=== PATIENT | female | born 1990 | race Caucasian/White ===

== ENCOUNTER → 2016-09-30 17:36 | Observation (INO) ==
[2016-09-30 14:49] LABS: Bilirubin,Urine Small (Negative); Blood,Urine Negative (Negative); Clarity,Urine Turbid (Clear); Color,Urine Dark Yellow (Yellow); Glucose,Urine (UA) Normal (Normal); Ketones,Urine 15 mg/dL (Negative); Leukocyte Esterase,Urine Moderate (Negative); Nitrite,Urine Negative (Negative); Protein,Urine 100 mg/dL (Neg-Trace); Specific Gravity,Urine > 1.030 (1.010-1.025); Urobilinogen,Urine Normal (Normal)
[2016-09-30 14:51] LABS: Bacteria,Urine Moderate per hpf (None-Few); Squamous Epithelial Cell,Urine Many per lpf (None-Few); WBC,Urine TNTC per hpf (0-3)
--- NOTE | 2016-09-30 15:33 | OB/GYN Progress Note ---
Date of Encounter: 09/30/16 Time of Encounter: 15:13 - Assessment and Plan (1) Uterine contractions at greater than 20 weeks of gestation Current Visit: Yes Status: Acute 500 ml LR bolus then 125/hr. UA C+S is indicated. Urine indicates possible UTI will treat with macrobid 100mg BID for 5 days Pt states has felt no cramping since completion of bolus. No contractions noted on tracing. Vaginal exam shows closed cervix Will discharge to home. Discussed when to call provider or return to triage. Pt and verbalize understanding. (2) 26 weeks gestation of Current Visit: Yes Status: Acute (3) related nausea, antepartum Current Visit: Yes Status: Acute Patient states nausea is improved after bolus Subjective - Subjective Interval history: 26 year old 26+1 complains of cramping with nausea and diarrhea (ended yesterday) for last 48 hours. Pt states last night cramping was occurring about every 5-20 minutes at times they felt painful. tachycardia noted in office today. Pt also states urine is dark, but has had decreased po intake due to nausea. Reports good movement, denies vaginal bleeding or leaking of fluid. Last intercourse was on Wednesday. Antepartum ROS: movement normal, contractions, no loss of fluid, no vaginal bleeding Objective - Vital Signs Vital Signs: Intake and Output 09/29/16 09/30/16 09/30/16 23:59 07:59 15:59 Other: Weight 93.894 kg Patient Weight 09/30/16 23:59 Weight 93.894 kg - Exam FHR: auscultation normal (appropraite for gestational age) Auscultation: bilateral: normal Abdomen: Present: normal appearance, soft, gravid Uterus: Present: normal, firm Cervical dilation: closed
[~2016-09-30 17:36] MED LIST: Ringers Solution, Lactated 1,000 ML IVC SCH
== END | disposition home or self-care (01) ==
LOC: 1NENULAB
PROVIDERS: ADMIT Advanced Practice Midwife; ATTEND Obstetrics & Gynecology

== ENCOUNTER 2016-12-28 05:55 | Inpatient (IN) ==
[2016-12-28] MEDS ORDERED: Metoclopramide 10 MG/2 ML VIAL IVP PRN (05:57)
[2016-12-28] MEDS ORDERED: Famotidine 20 MG/2 ML VIAL IVP PRN (05:57)
[2016-12-28] MEDS ORDERED: Penicillin G Potassium 5,000,000 UNIT in D5% in Water (Mini-Bag+) 100 ML IVPB ONE (05:57)
[2016-12-28] MEDS ORDERED: Naloxone 0.4 MG/ML INJ IVP PRN (05:57)
[2016-12-28] MEDS ORDERED: *HR* Nalbuphine 20 MG/ML AMPUL IVP PRN ×2 (05:59→12:28)
[2016-12-28] MEDS ORDERED: Oxytocin 20 units/ LR 1000 mL 20 UNIT/1,000 ML BAG IVC SCH ×2 (06:00→20:54)
[2016-12-28] MEDS ORDERED: Ringers Solution, Lactated 1,000 ML IVC SCH (06:00)
[2016-12-28 06:48] LABS: Basophils % 0.4 %; Eosinophils % 0.5 %; Hematocrit 36.4 % (35.3-44.9); Hemoglobin 11.7 g/dL (11.5-15.4); Immature Granulocytes % 0.4 % (0-4); Lymphocytes # 1.8 K/mcL (0.6-4.6); Lymphocytes % 23.4 %; Mean Corpuscular HGB Conc 32.1 g/dL (31.6-35.5); Mean Corpuscular Hemoglobin 27.1 pg (28.0-33.3); Mean Corpuscular Volume 84.5 fL (83.0-100.0); Mean Platelet Volume 10.2 fL (9.4-12.4); Monocytes # 0.5 K/mcL (0.0-1.3); Monocytes % 6.9 %; Neutrophils # 5.2 K/mcL (1.6-8.9); Platelet Count 224 K/mcL (140-400); Red Blood Count 4.31 M/mcL (3.82-4.97); Red Cell Distribution Width 14.6 % (11.5-14.5); Segmented Neutrophils % 68.4 %
--- NOTE | 2016-12-28 08:11 | OB/GYN History & Physical ---
Date of Encounter: 12/28/16 Time of Encounter: 08:10 Assessment and Plan (1) and not yet delivered in third trimester Current visit: Yes Status: Acute (2) 39 weeks gestation of Current visit: Yes Status: Acute (3) Elective induction of labor planned Current visit: No Status: Acute We will induce the patient with Pitocin and a Corral catheter (4) Positive GBS test Current visit: No Status: Acute Penicillins been started 5 million units and 2.5 million every 4 hours until delivery History of Present Illness HPI: Ms. Medrano is a 26 year old female 4 para 2021 at 39-0/7 weeks who presented for induction of labor secondary to an with favorable cervix. Patient was wanted be induced as soon as she could and advised it would be in the 39 week range. Patient has relatively fast labor is when she gets going. Patient is wanting Pitocin only to augment her labor with does not one Cytotec but is willing to try her Corral catheter. Patient is GBS positive antibiotics will be started denies any leaking of fluid vaginal bleeding. Patient is Rh+ rubella positive Past Med Surg Social Fam HX - Past Medical History Medical history: no medical history Psychiatric history: anxiety - Past Surgical History Surgical History: no surgical history - Social History Smoking Status: Never smoker Smokeless Tobacco Status: No Alcohol use: none Drug use: none Occupational status: unemployed Current living situation: Home - Independent Activity Level: Independent ambulation Recent Out of Country Travel Within the Last 8 Weeks: No Exposure or Possible Exposure to Illness During Travel: No - Family History Mother Adopted: No Family Member Ethnicity: Non- Living Status: Still Living Hx Family Cardiac Disorders: Yes (HTN) Hx Family Respiratory Disorders: No Hx Family Cancer: Yes (BREAST CANCER) Hx Family GI Disorders: No Hx Family Endocrine Disorder: Yes (DIABETES) Hx Family Neuromuscular Disorders: Yes (RA) Hx Family Neurologic Disorders: No (neuropathy) Hx Family HEENT Disorders: No Hx Family Autoimmune Disorders: No - Additional Family History Additional family history: Family history is noncontributory at this time Obstetrical History - Pregnancies : 4 Para: 2 Term: 2 : 0 Ab's: 2 Livin Medications and Allergies Vit Calc,Iron,Folic [ Vitamins] 1 tab PO DAILY 09/30/16 [ History] Allergies azithromycin [From Zithromax Z-Robel] Adverse Reaction (Verified 12/28/16 06:51) Vomiting Review of System OB All systems PM: reviewed and no additional remarkable complaints except as stated Exam - Vital Signs Vital signs: Initial Vital Signs Temp Pulse Resp BP 97.7 F 92 16 113/73 12/28/16 06:17 12/28/16 06:17 12/28/16 06:17 12/28/16 06:17 - Constitutional Constitutional: well developed, well nourished, no acute distress, average body habitus - HEENT HEENT: PERRL - Neck Neck exam: full ROM - Lungs Respiratory exam: CTAB - Cardiovascular Cardiovascular exam: RRR - Cervix Dilation: 2 Effacement: 80 Station: -2 - Comments Comments: Corral catheter placed within the cervix 30 mL balloon inflated Results Result Diagrams: 12/28/16 06:24 Abnormal lab results MCH 27.1 pg (28.0-33.3) L 12/28/16 06:24 RDW 14.6 % (11.5-14.5) H 12/28/16 06:24 All other labs normal. - VTE Reasons for not Prescribing Prophylaxis: Treatment not Indicated - Low risk for VTE
[2016-12-28] MEDS ORDERED: Penicillin G Potassium 2,500,000 UNIT in D5% in Water 100 ML IVPB SCH (10:00)
--- NOTE | 2016-12-28 12:31 | OB Labor Progress Note ---
Date of Encounter: 12/28/16 Time of Encounter: 12:30 Labor Progress Note - Subjective Subjective: Patient is doing well tolerating labor. Corral catheter is out - Cervix Cervix: 5/80/-2 AROM clear - Heart Tones Heart Tones: heart tones 140s reactive - [place]: Contractions every 2 minutes - Plan Plan: Anticipate normal spontaneous vaginal delivery
--- NOTE | 2016-12-28 18:17 | OB/GYN Procedure Note ---
Delivery - Delivery Date: 12/28/16 Provider: Collins Edward Intrapartum events: none Delivery induction: oxytocin Delivery augmentation: rupture of membranes Delivery monitor: external FHT, external uterine Anesthesia: none - (s) Infant A Delivery Date: 12/28/16 Delivery Time: 17:48 Presentation: vertex Position: MAJOR Route of delivery: Gender: Female Viability: Viable Pounds: 6 Ounces: 3 Weight Gram: 2.8 kg at 5 mins: 8 at 10 mins: 9 Shoulder Dystocia: not encountered Specimens collected: cord blood Placenta: spontaneous Cord: 3 umbilical vessels - Repair Episiotomy: none Laceration Description: None - Complications Delivery complications: none Delivery comments: Patient is a 26-year-old 4 para 2011 at 39 weeks who presented for induction of labor secondary to in with favorable cervix. Patient history of fast labors and we advised her when she was 39 weeks with a favorable cervix we would induce. Patient was a good 2 cm on admission she wanted Pitocin induction which we started. Did agree to a Corral induction for the state in for 1 hour and then had fallen out patient was 4-5 cm this time with her GBS status we waited a good 4 hours before she was artificially ruptured large amounts of clear fluid. Patient did not want an epidural and progressed appropriately patient became complete and pushed one time delivering a viable female infant in right occiput anterior presentation at 1748. There was no nuchal cord, no meconium, infant was bulb suctioned on the abdomen, weight was 6 lbs. 3 oz. Apgars were 8 at 1 minutes, 9 at 5 minutes, placenta was then delivered spontaneously with three-vessel cord, prestidigitator at [facility], first beater Mohsen Rogers OMS3, anesthesia none estimated blood loss was 100 mL. Perineum cervix and vagina was visualized intact patient tolerated delivery well. She will be observed 2 hours before being taken floor. - Disposition Mom disposition: stable in LDR disposition: stable in LDR
[2016-12-28] MEDS ORDERED: Measles/Mumps/Rubella Vacc 0.5 ML VIAL SQ PRN (20:54)
[2016-12-28] MEDS ORDERED: Acetaminophen 325 MG TABLET PO PRN (20:54)
[2016-12-28] MEDS: Ibuprofen 600 MG TABLET PO PRN (21:10)
[2016-12-29 05:53] LABS: Basophils % 0.3 %; Eosinophils % 0.2 %; Hematocrit 32.4 % (35.3-44.9); Hemoglobin 10.3 g/dL (11.5-15.4); Immature Granulocytes % 0.6 % (0-4); Lymphocytes # 1.7 K/mcL (0.6-4.6); Lymphocytes % 18.7 %; Mean Corpuscular HGB Conc 31.8 g/dL (31.6-35.5); Mean Corpuscular Hemoglobin 27.3 pg (28.0-33.3); Mean Corpuscular Volume 85.9 fL (83.0-100.0); Mean Platelet Volume 9.6 fL (9.4-12.4); Monocytes # 0.7 K/mcL (0.0-1.3); Monocytes % 7.3 %; Neutrophils # 6.5 K/mcL (1.6-8.9); Platelet Count 206 K/mcL (140-400); Red Blood Count 3.77 M/mcL (3.82-4.97); Red Cell Distribution Width 14.3 % (11.5-14.5); Segmented Neutrophils % 72.9 %
[2016-12-29] MEDS: Ibuprofen 600 MG TABLET PO PRN (07:06)
--- NOTE | 2016-12-29 08:32 | Discharge Summary ---
Date of Encounter: 12/29/16 Time of Encounter: 08:30 - Discharge Diagnosis (1) Mother currently breast-feeding Priority: Secondary Status: Acute (2) Vaginal delivery Priority: Primary Status: Acute Comments: Pt meeting all milestones and is requesting discharge today. - Discharge Medications Prescriptions: Ibuprofen [Motrin] 600 mg PO Q6HR PRN #60 tab PRN Reason: Cramping Docusate [Colace] 100 mg PO BID #60 Home Medications: Vit Calc,Iron,Folic [ Vitamins] 1 tab PO DAILY 09/30/16 [ History] Docusate [Colace] 100 mg PO BID #60 12/29/16 [Rx] Ibuprofen [Motrin] 600 mg PO Q6HR PRN #60 tab 12/29/16 [Rx] Allergies/Adverse Reactions: Allergies azithromycin [From Zithromax Z-Robel] Adverse Reaction (Verified 12/28/16 06:51) Vomiting Data Procedures and tests throughout hospitalization: Laboratory Tests 12/28/16 12/29/16 06:24 05:23 WBC 7.5 8.9 RBC 4.31 3.77 L Hgb 11.7 10.3 L Hct 36.4 32.4 L MCV 84.5 85.9 MCH 27.1 L 27.3 L MCHC 32.1 31.8 RDW 14.6 H 14.3 Plt Count 224 206 MPV 10.2 9.6 Immature Gran % 0.4 0.6 Seg Neutrophils % 68.4 72.9 Lymphocytes % 23.4 18.7 Monocytes % 6.9 7.3 Eosinophils % 0.5 0.2 Basophils % 0.4 0.3 Neutrophils # 5.2 6.5 Lymphocytes # 1.8 1.7 Monocytes # 0.5 0.7 Eosinophils # 0.0 0.0 Basophils # 0.0 0.0 Labs on day of discharge: Labs from last 24 hours 12/29/16 05:23 WBC 8.9 RBC 3.77 L Hgb 10.3 L Hct 32.4 L MCV 85.9 MCH 27.3 L MCHC 31.8 RDW 14.3 Plt Count 206 MPV 9.6 Immature Gran % 0.6 Seg Neutrophils % 72.9 Lymphocytes % 18.7 Monocytes % 7.3 Eosinophils % 0.2 Basophils % 0.3 Neutrophils # 6.5 Lymphocytes # 1.7 Monocytes # 0.7 Eosinophils # 0.0 Basophils # 0.0 Date of admission: 12/28/16 05:55 Primary care physician: PCP NONE Consults: 12/28/16 20:54 Consult to Laydown Machine Operator [CONS] Routine Comment: Vaginal delivery, consult needed Discharging clinician: Fely Mancilla Anticipated date of discharge: 12/29/16 - Patient Status Disposition: Home, Self-Care Condition: Good Functional capacity at discharge: independent ambulation Overall status at discharge: patient is progressing back to baseline - Discharge Instructions Follow Up With: NONE,PCP [Primary Care Provider] - Collins [facility], DO [Partnered Physician] - - Diet and Activity Activity: increase activity as tolerated Diet: regular diet Hospital Course Reason for admission: induction of labor Delivery: Episiotomy: none Laceration: none Other procedures: none complications: none Discharge diagnosis: IUP at term delivered baby: female Hospital course: - Delivery Date: 12/28/16 Provider: Collins Edward Intrapartum events: none Delivery induction: oxytocin Delivery augmentation: rupture of membranes Delivery monitor: external FHT, external uterine Anesthesia: none - Infant (s) A Infant Delivery Date: 12/28/16 Delivery Time: 17:48 Presentation: vertex Position: MAJOR Route of delivery: Gender: Female Viability: Viable Pounds: 6 Ounces: 3 Weight Gram: 2.8 kg at 5 mins: 8 at 10 mins: 9 Shoulder Dystocia: not encountered Specimens collected: cord blood Placenta: spontaneous Cord: 3 umbilical vessels - Repair Episiotomy: none Laceration Description: None - Complications Delivery complications: none - Disposition Mom disposition: home PPD1 [place] disposition: home with mother, Time Attestation: Total time spent providing and/or coordinating discharge services: Exam - Constitutional Vitals: Temp Pulse Resp BP Pulse Ox 97.7 F 64 16 116/77 98 12/29/16 07:55 12/29/16 07:55 12/29/16 07:55 12/29/16 07:55 12/29/16 07:55 General appearance IM: A&O X 3 - Respiratory Respiratory exam: Present: CTAB - Cardiovascular Cardiovascular exam IM: Present: RRR - GI/Abdominal GI/Abdominal exam IM: soft - Rectal Rectal exam: deferred - Uterine Tone: Firm Uterus Position: 1 Finger Below Umbilicus - Extremities Exam Extremities exam IM: Present: normal inspection - Neurological Exam Neurological exam: normal gait, oriented X3 - Psychiatric Additional comments: reports good mood
[2016-12-29] MEDS ORDERED: Prenatal Vit/FA 1 EACH TABLET PO SCH ×2 (09:00)
[2016-12-29 18:25] VITALS: BP 120/84
== END 2016-12-29 19:07 | disposition home or self-care (01) | DRG 775 ==
LOC: 1NENULAB 05:55 → 1NENUOBS 21:06
PROVIDERS: ADMIT Obstetrics & Gynecology; ATTEND Obstetrics & Gynecology

== ENCOUNTER → 2020-01-17 07:04 | Observation (INO) | END | disposition home or self-care (01) | LOC: 1NENULAB | PROVIDERS: ADMIT Student in an Organized Health Care Education/Training Program; ATTEND Student in an Organized Health Care Education/Training Program ==

== ENCOUNTER 2020-01-29 10:00 | Inpatient (IN) ==
[2020-01-29] MEDS ORDERED: *HR* FentaNYL (PF) 100 MCG/2 ML VIAL IVP PRN (10:41)
[2020-01-29] MEDS ORDERED: Azithromycin 500 MG in 0.9 % Sodium Chloride 250 ML IVPB ONE (10:41)
[2020-01-29] MEDS ORDERED: Ondansetron 4 MG/2 ML VIAL IVP PRN (10:41)
[2020-01-29] MEDS ORDERED: Naloxone 0.4 MG/ML INJ IVP PRN (10:41)
[2020-01-29] MEDS ORDERED: Metoclopramide 10 MG/2 ML VIAL IVP PRN (10:41)
[2020-01-29] MEDS ORDERED: Famotidine 20 MG/2 ML VIAL IVP PRN (10:41)
[2020-01-29] MEDS ORDERED: Lidocaine 1% 20 ML MDV INFILT PRN (10:41)
[2020-01-29] MEDS ORDERED: Ringers Solution, Lactated 1,000 ML ONE (10:44)
[2020-01-29 11:10] LABS: Basophils % 0.3 %; Eosinophils % 0.3 %; Hematocrit 37.7 % (35.3-44.9); Immature Granulocytes % 0.4 % (0-4); Lymphocytes # 1.3 K/mcL (0.6-4.6); Lymphocytes % 18.1 %; Mean Corpuscular HGB Conc 31.8 g/dL (31.6-35.5); Mean Corpuscular Hemoglobin 28.1 pg (28.0-33.3); Mean Corpuscular Volume 88.3 fL (83.0-100.0); Mean Platelet Volume 10.3 fL (9.4-12.4); Monocytes # 0.4 K/mcL (0.0-1.3); Monocytes % 5.1 %; Neutrophils # 5.6 K/mcL (1.6-8.9); Platelet Count 246 K/mcL (140-400); Red Blood Count 4.27 M/mcL (3.82-4.97); Red Cell Distribution Width 14.4 % (11.5-14.5); Segmented Neutrophils % 75.8 %; White Blood Count 7.3 K/mcL (4.3-11.1)
[2020-01-29 11:17] LABS: Amphetamine Screen,Urine Negative ng/mL (Cutoff=1000); Barbiturate Screen,Urine Negative ng/mL (Cutoff=200); Benzodiazepines Screen,Urine Negative ng/mL (Cutoff=200); Cannabinoid Screen,Urine Negative ng/mL (Cutoff = 50); Cocaine Screen,Urine Negative ng/mL (Cutoff= 300); Opiate Screen,Urine Negative ng/mL (Cutoff=300); Phencyclidine Screen,Urine Negative ng/mL (Cutoff=25)
[2020-01-29] MEDS ORDERED: Penicillin G Potassium 5,000,000 UNIT in 0.9 % Sodium Chloride Mini Bag 100 ML IVPB ONE (12:12)
[2020-01-29] MEDS ORDERED: miSOPROStoL 25 MCG TABLET VG SCH (12:30)
[2020-01-29] MEDS: Ringers Solution, Lactated 1,000 ML IVC SCH ×2 (12:40→18:55)
[2020-01-29] MEDS: Penicillin G Potassium 2,500,000 UNIT in 0.9 % Sodium Chloride 100 ML IVPB SCH ×2 (16:22→20:01)
[2020-01-29] MEDS ORDERED: Oxytocin 20 units/ LR 1000 mL 20 UNIT/1,000 ML BAG IVC SCH ×2 (17:50→20:55)
[2020-01-30] MEDS ORDERED: Benzocaine/Menthol 56 GM AEROSOL SPRAY TP PRN (02:29)
[2020-01-30] MEDS ORDERED: Oxytocin 20 units/ LR 1000 mL 20 UNIT/1,000 ML BAG IVC ONE (02:29)
[2020-01-30] MEDS ORDERED: Acetaminophen 325 MG TABLET PO PRN (02:29)
[2020-01-30] MEDS ORDERED: Oxytocin 20 units/ LR 1000 mL 20 UNIT/1,000 ML BAG IVC SCH (02:29)
[2020-01-30] MEDS: Ibuprofen 600 MG TABLET PO PRN ×2 (02:44→09:06)
[2020-01-30 03:06] LABS: Basophils % 0.3 %; Eosinophils # 0.1 K/mcL (0.0-0.6); Eosinophils % 0.8 %; Hematocrit 34.5 % (35.3-44.9); Hemoglobin 11.5 g/dL (11.5-15.4); Immature Granulocytes % 0.7 % (0-4); Lymphocytes % 21.6 %; Mean Corpuscular HGB Conc 33.3 g/dL (31.6-35.5); Mean Corpuscular Hemoglobin 30.6 pg (28.0-33.3); Mean Corpuscular Volume 91.8 fL (83.0-100.0); Monocytes % 7.2 %; Neutrophils # 9.7 K/mcL (1.6-8.9); Platelet Count 249 K/mcL (140-400); Red Blood Count 3.76 M/mcL (3.82-4.97); Red Cell Distribution Width 13.8 % (11.5-14.5); Segmented Neutrophils % 69.4 %
[2020-01-30 03:48] LABS: White Blood Count 13.9 K/mcL (4.3-11.1)
[2020-01-30] MEDS: Prenatal Vit/FA 1 EACH TABLET PO SCH (09:03)
[2020-01-30] MEDS: Lanolin 7 G OINT...G. TP PRN (19:58)
[2020-01-31] MEDS: Lanolin 7 G OINT...G. TP PRN (08:05)
[2020-01-31] MEDS: Prenatal Vit/FA 1 EACH TABLET PO SCH (08:05)
[2020-01-31] MEDS: Ibuprofen 600 MG TABLET PO PRN (08:05)
[2020-01-31 08:09] VITALS: BP 122/75
== END 2020-01-31 12:27 | disposition home or self-care (01) | DRG 807 ==
LOC: 1NENULAB 10:23 → 1NENUOBS 01-30 03:09
PROVIDERS: ADMIT Obstetrics & Gynecology; ATTEND Obstetrics & Gynecology